=== PATIENT | male | born 2000 | race Caucasian/White ===

== ENCOUNTER 2018-03-20 00:09 | Emergency (ER) | payer OTHER ==
[~2018-03-20] VITALS: Ht 185.4 cm; Wt 74.3 kg
[2018-03-20] MEDS ORDERED: PROCHLORPERAZINE 5 MG/ML, 2ML ONE (00:51)
[2018-03-20] MEDS ORDERED: DIPHENHYDRAMINE 25 MG CAPSULE ONE (00:52)
[2018-03-20] MEDS ORDERED: KETOROLAC 30 MG/1 ML ONE (00:52)
[2018-03-20] MEDS ORDERED: KETOROLAC 30 MG/1 ML IVPush ONE (01:00)
[2018-03-20] MEDS ORDERED: SODIUM CHLORIDE 0.9% 1,000ML IVBOLUS ONE (01:00)
[2018-03-20] MEDS ORDERED: PROCHLORPERAZINE 5 MG/ML, 2ML IVPush ONE (01:00)
[2018-03-20] MEDS ORDERED: DIPHENHYDRAMINE 25 MG CAPSULE PO ONE (01:00)
[2018-03-20 01:06] VITALS: BP 111/62
[2018-03-20] MEDS ORDERED: NAPR-685 PO (01:09)
[2018-03-20] MEDS ORDERED: CYCL-259 PO (01:09)
[2018-03-20 01:12] LABS: BASOPHILS # (AUTO) 0.01 x10^3/uL (0-0.3); BASOPHILS % (AUTO) 0 % (0-1); EOSINOPHILS # (AUTO) 0.07 x10^3/uL (0-0.8); EOSINOPHILS % (AUTO) 1 % (1-7); LYMPHOCYTES # (AUTO) 1.76 x10^3/uL (1-6.1); LYMPHOCYTES % (AUTO) 17 % (22-44); MD NO; MEAN CORPUSCULAR HEMOGLOBIN 29.2 pg (27.5-34.5); MEAN CORPUSCULAR VOLUME 85.9 fL (81-97); MEAN PLATELET VOLUME 7.9 fL (7.4-10.4); MONOCYTES # (AUTO) 0.59 x10^3/uL (0-1.4); MONOCYTES % (AUTO) 6 % (2-9); NEUTROPHILS # (AUTO) 7.98 x10^3/uL (1.8-8.0); NEUTROPHILS % (AUTO) 77 % (42-75); PLATELET COUNT 269 x10^3/uL (130-400); RED BLOOD COUNT 5.45 x10^6/uL (4.38-5.82); RED CELL DISTRIBUTION WIDTH 14.3 % (9.4-14.8)
[2018-03-20 01:20] LABS: ALBUMIN 4.6 g/dL (3.4-5.0); ANION GAP 8 mmol/L (5-15); CALCIUM 9.1 mg/dL (8.5-10.1); CHLORIDE 107 mmol/L (98-107)
== END 2018-03-20 01:44 | disposition home or self-care (01) ==
LOC: ED 01:34
DX: G44.211 Episodic tension-type headache, intractable (principal)
CPT/HCPCS: 36415; 70450; 80048; 82040; 85025; 96374; 96375; 99284; J0780; J1885; J7030; Q0163